=== PATIENT | male | born 1955 | race Caucasian/White ===

== ENCOUNTER 2020-12-26 22:41 | Observation (INO) | payer OTHER ==
[~2020-12-26] VITALS: Ht 167.6 cm; Wt 101.6 kg
[2020-12-27] MEDS ORDERED: LISINOPRIL40 MG PO (00:02)
[2020-12-27] MEDS ORDERED: OMEPRAZOLE20 MG PO (00:07)
[2020-12-27] MEDS ORDERED: ASPIRIN CHEWABL81 MG PO (00:07)
[2020-12-27] MEDS ORDERED: ATORVASTATIN CA20 MG PO (00:07)
[2020-12-27] MEDS ORDERED: KLONOPIN TAB 00.5 MG PO (00:08)
[2020-12-27] MEDS ORDERED: GABAPENTIN600 MG PO (00:08)
[2020-12-27 07:05] LABS: HEMOGLOBIN 13.5 gm/dl (14.0-17.5); RED BLOOD COUNT 4.67 M/UL (4.20-5.50); WHITE BLOOD COUNT 13.1 K/UL (4.5-11.0)
[2020-12-27] MEDS ORDERED: ALLERGY RELIEF10 MG PO (13:52)
[2020-12-27] MEDS ORDERED: FLONASE 0.05% N16 GM (13:52)
[2020-12-27] MEDS ORDERED: MOBIC7.5 MG PO (13:53)
[2020-12-27] MEDS ORDERED: GLUCOPHAGE1000 MG PO (13:54)
[2020-12-27] MEDS ORDERED: LEVOFLOXACIN500 MG PO (14:15)
[2020-12-27] MEDS ORDERED: HYDROCODON-ACE1 EAC4 PO (14:15)
[2020-12-27] MEDS ORDERED: FLUVOXAMINE MAL50 MG PO (18:14)
[2020-12-28 08:41] LABS: HEMOGLOBIN 12.8 gm/dl (14.0-17.5); RED BLOOD COUNT 4.23 M/UL (4.20-5.50)
[2020-12-28 08:42] LABS: WHITE BLOOD COUNT 8.3 K/UL (4.5-11.0)
[2020-12-28] MEDS ORDERED: AMLODIPINE BESYL5 MG PO (11:24)
--- NOTE | 2020-12-28 15:12 | NUR ---
PATIENT BEGAN TO HAVE HIGH BLOOD PRESSURE BEFORE BEING DISCHARGED. I HAD PAPERWORK ALREADY PRINTED OUT. I RECHECKED BP MULTIPLE TIMES AND MY MOST CURRENT BP WAS 182/65 WITH A MAP OF 96. DR. SINGH WAS ON THE FLOOR ALREADY SO I NOTIFIED HER. SHE ORDERED A ONE TIME DOSE OF 5MG NORVASC PO AND THEN PATIENT COULD GO HOME.
== END 2020-12-28 16:05 | disposition home or self-care (01) ==
LOC: PROG CARE 22:41
PROVIDERS: ADMIT Internal Medicine
PROC: 0JH606Z Insertion of Pacemaker, Dual Chamber into Chest Subcutaneous Tissue and Fascia, Open Approach (ICD-10-PCS; principal; 2020-12-27)
PROC: 02H63JZ Insertion of Pacemaker Lead into Right Atrium, Percutaneous Approach (ICD-10-PCS; 2020-12-27)
PROC: 02HK3JZ Insertion of Pacemaker Lead into Right Ventricle, Percutaneous Approach (ICD-10-PCS; 2020-12-27)
DX: I44.2 Atrioventricular block, complete (principal); I49.5 Sick sinus syndrome; I45.2 Bifascicular block; I10 Essential (primary) hypertension; E78.5 Hyperlipidemia, unspecified; E11.42 Type 2 diabetes mellitus with diabetic polyneuropathy; K21.9 Gastro-esophageal reflux disease without esophagitis; F41.9 Anxiety disorder, unspecified; F32.9 Major depressive disorder, single episode, unspecified; F17.210 Nicotine dependence, cigarettes, uncomplicated; Z20.822 Contact with and (suspected) exposure to COVID-19; Z79.82 Long term (current) use of aspirin; Z79.1 Long term (current) use of non-steroidal anti-inflammatories (NSAID); Z79.84 Long term (current) use of oral hypoglycemic drugs; Z79.899 Other long term (current) drug therapy
CPT/HCPCS: ECHO; 33208; 36415; 71045; 80048; 82550; 82553; 82962; 83735; 84439; 84443; 84484; 85025; 85610; 85730; 86140; 93005; 93306; 96374; 96376; 99152; 99153; C1785; C1898; G0378; G0379; J1200; J1644; J1650; J2250; J3010; J3370; J7040; J7050; J7070